=== PATIENT | male | born 1940 | race Caucasian/White ===

== ENCOUNTER 2016-12-05 10:16 | Day surgery (SDC) | payer MEDICARE, OTHER ==
[~2016-12-05] VITALS: Ht 182.9 cm; Wt 88.0 kg
--- NOTE | 2016-12-05 07:04 | PCM.HPANE ---
Patient Data Surgeon Admitting Provider: Attending Provider:Francis Blackwood MD Primary Care Physician:Rossi Other Provider:Macy Pham Anesthesia Reason for Visit Colon Cancer Screening, Gerd Ht/WT & BMI Body Mass Index Allergies Coded Allergies: No Known Allergies (Verified , 12/01/16) Past Anesthesia History Anesthesia History: Denies:: Abnormal Airway, Anesthesia Reactions, Difficult Intubation, Fam Anesthesia Reaction, Fam Malignant Hypertherm, Malignant Hyperthermia Diabetes History Hx Diabetes?: No MRSA MRSA: No Medications Reported Medications Ipratropium/Albuterol Sulfate (Iprat-Albut 0.5-3(2.5) mg/3 mL Inhalant Soln)3 Ml Ampul.neb3 Ml IH TID Ref 0 12/01/16 Terazosin 10 Mg Qctjuke96 Mg PO HS Ref 0 09/23/15 Omeprazole 20 Mg Tablet.dr20 Mg PO DAILY PRN For Indigestion 09/23/15 Clopidogrel 75 Mg Vvikjj84 Mg PO DAILY Ref 0 09/23/15 Bisoprolol Fumarate 5 Mg Tablet5 Mg PO DAILY 09/23/15 Atorvastatin (Lipitor)40 Mg Xgmird79 Mg PO DAILY Ref 0 09/23/15 Discontinued Reported Medications Albuterol Sulfate (Ventolin HFA Inhaler)200 Puff/18 Gm Inhaler1 Puff INH Q4 PRN For Wheezing #1 INHALER Ref 0 12/01/16 Montelukast 10 Mg Nguibp49 Mg PO HS Ref 0 12/01/16 Albuterol HFA (Proair HFA)8.5 Gm Hfa.aer.ad2 Puffs INHALATION Q4H PRN For Shortness of Breath #1 INHALER 09/23/15 Fluticasone/Salmeterol (Advair 250-50 Diskus)60 Puff/Inh Disk1 Puff IH BID #1 DISK Ref 0 09/23/15 Loratadine (Claritin)10 Mg Novneud39 Mg PO DAILY Ref 0 09/24/15 History History of ENT Problems?: Yes HEENT History: Positive for:: Sinus Problem Denies:: Abnormal Airway Cataracts Difficult Intubation Dysphagia Hearing Problem Denture Type: None Teeth Condition: Within Normal Limits Hx of Heart Problems?: Yes Cardiovascular History: Positive for:: Cardiac Surgery Chest Pain Edema (left calf foot) Hypertension Irregular Heartbeat (Not afib) Denies:: Atrial Fibrillation Congestive Heart Failure Heart Murmur Pacemaker Thrombophlebitis Valvular Heart Disease Hx of Respiratory Problem?: Yes Respiratory History: Positive for:: Dyspnea Denies:: Asthma COPD Chest Surgery Cough Hemoptysis Pneumonia Tuberculosis Hx Neurologic Problems?: No Neurological History: Denies:: CVA Dementia Dizziness Headaches Parkinson's Disease Seizures Hx of GI Problems?: No Hx of Problems?: No Genitourinary History: Denies:: Kidney Stones Urinary Tract Infection Male Hx: Denies:: Scrotal Mass Testicular Surgery Hx Musculoskeletal Problems?: Yes Musculoskeletal History: Positive for:: Back Injury Denies:: Joint Replacement Musculoskeletal Trauma Hx of Psycho/Social Problems?: No Psycho Social History: Denies:: Anxiety Hx Depression Suicide Attempt Hx Surgeries?: Yes (2 stents, ) Hx Any Other Health Problems?: Yes Other History: Positive for:: Cancer (Skin cancers) Hospitalization Denies:: Endocrine Disease Thyroid Disease History Blood Transfusions: Denies:: Blood Transfuse Reaction Blood Transfusions Hx Diabetes: No Hx Alcohol Use: NoHx Substance Use: No Smoking Status: Former Smoker Have You Smoked inLast 12 mo: Yes (1/2 ppd x 40 years) Stop/Bang Risk Assessment Category Category 1A: Patient has history of documented sleep apnea, and HAS NOT received any narcotic, sedative or anesthesia administration during this stay. Category 1B: Patient has history of documented sleep apnea, and HAS received any narcotic , sedative or anesthesia administration during this stay Category 2: Patient has SUSPECTED Obstructive Sleep Apnea, and HAS received any narcotic , sedative or anesthesia administration during this stay. Category 3: Patient has SUSPECTED Obstructive Sleep Apnea and HAS NOT received narcotic, sedative or anesthesia administration during this stay. Category 4: Outpatient in Procedural Areas with known sleep apnea or who screen positive for High Risk via the STOP/BANG questionnaire. Exam Exam General Appearance: Alert, Oriented X3, Cooperative, No Acute Distress HEENT/AIRWAY: MP 2, Neck Movement (from), Mouth Opening (wnl) Lungs: Clear to Auscultation Heart: Exam Unremarkable Plan Impression Patient chart reviewed, patient interviewed and anesthestic plan with risks, benefits, and alternatives discussed, and informed consent obtained. ASA Physical Status: ASA2 Mod Systemic Disease Anesthetic Plan: GA Bene/Risks/Altern/Consents: Yes HP Complete Prior to Induction: Yes Dixon Kolb MD December 05, 2016 07:04
[~2016-12-05 10:16] MED LIST: ADV250INH IH; ALBU18HF INH; ALBU8.5H2 INHALATION; BISO5TAB2 PO; CLOP75TA28 PO; IPRA3AMP IH; LIP40 PO; Lactated Ringer's 1,000 ML IV ONE; MONT10TA23 PO; OMEP20TA86 PO; TERA10CA5 PO
[2016-12-05] MEDS ORDERED: Propofol 10,000 mCg/mL 20 mL Inj ONE (10:17)
[2016-12-05] MEDS ORDERED: fentaNYL-PF 50 mCg/mL 2 mL Inj ONE (10:17)
[2016-12-05 10:40] VITALS: BP 152/83; PULSE 69; RESP 16; O2SAT 98
[2016-12-05] MEDS ORDERED: Lactated Ringer's 1,000 ML IV SCH (11:18)
[2016-12-05] MEDS ORDERED: Ondansetron 2 mg/mL 2 mL Inj IVPUSH PRN (11:20)
[2016-12-05] MEDS ORDERED: MetoCLOpramide 5 mg/mL 2 mL Inj IVPUSH PRN (11:20)
[2016-12-05 12:05] VITALS: BP 120/64; PULSE 64; RESP 14; O2SAT 96
[2016-12-05 12:25] VITALS: BP 120/64; PULSE 68; RESP 14; O2SAT 94
[2016-12-05 12:29] VITALS: BP 142/74; PULSE 64; RESP 14; O2SAT 95
--- NOTE | 2016-12-05 13:23 | PCM.ANEP1 ---
Post Anesthesia PACU Phase 1 Assessment Vital Signs Vital Signs Date Time Temp Pulse Resp B/P Pulse Ox O2 Delivery O2 Flow Rate FiO2 12/05/16 12:29 64 14 142/74 95 Room Air 12/05/16 12:25 68 14 120/64 94 Room Air 12/05/16 12:05 64 14 120/64 96 Room Air 12/05/16 10:40 36.6 69 16 152/83 98 Room Air Anesthetic Administered: GA Level of Alertness: Awake, talking BLEVINS's with Equal Strength: Yes Pain: No Nausea or Vomiting: No CV Function & Hydration Stable: Yes Airway Device: Lungs: Clear to Auscultation PACU Phase 2 Assessment Complications: No Follow up Care: No Patient Instructions Provided: N/A Dixon Kolb MD December 05, 2016 13:23
--- NOTE | 2016-12-05 13:36 | ENDO ---
[address] [address] ENDOSCOPY PROCEDURE PATIENT: CORAL FISHMAN : 1940 MR#: [id number] ADMIT: 12/05/2016 JOB ID: [id number] DATE OF SERVICE: 12/05/2016 PROCEDURE: Esophagogastroduodenoscopy and a colonoscopy. INDICATIONS: A 76-year-old male with symptoms of reflux and hoarseness. Partially responsive to a single daily dose of omeprazole. He also reports for colon cancer screening with a remote history of tubulovillous adenoma. EQUIPMENT: GIF-H180J and a PCF-H180AL. SEDATION: Monitored anesthesia as provided by Dr. Armando Kolb. COMPLICATIONS: None identified. BOWEL PREPARATION: Fair, adequate exam. PROCEDURE INFORMATION: After the risks and benefits were explained, written and verbal informed consent was obtained, the patient was brought into the endoscopy suite and placed into the left lateral decubitus position. Sedation was achieved using the above-stated medications with the addition of oxygen via nasal cannula. The scope was introduced into the mouth through the bite block, and advanced to the second portion of the duodenum. The scope was slowly withdrawn to carefully examine the mucosa for any defects or lesions. Retroflexed views were accomplished in the stomach. The stomach was decompressed. The scope removed from the patient who tolerated the procedure well. The patient was then turned around. A digital rectal examination accomplished. No significant pathology appreciated apart from some moderate internal hemorrhoids. The scope was introduced into the rectum and advanced to the cecum as identified by the appendiceal orifice and ileocecal valve. The scope was slowly withdrawn to carefully examine the mucosa for any defects or lesions. Multiple direct views were made through the dentate line for exclusion of pathology. The colon was decompressed. The scope removed from the patient who tolerated the procedure well. FINDINGS: 1. Duodenum: This appeared unremarkable from the bulb through to the second portion. 2. Stomach: No significant pathology throughout the stomach. No ulcers. No mass lesions. No outlet obstruction. Retroflexed views did reveal the presence of a sliding hiatal hernia. 3. Esophagus: The squamocolumnar junction seemed to correlate with the top of the gastric folds at around 38 cm from the incisors (GE junction.) The diaphragmatic pinchcock was at about 44 cm from the incisors. No other pathology in the esophagus apart from some subtle low-grade esophagitis just proximal to the GE junction. 4. Colon: No significant polyps, mass lesions, or inflammatory features identified throughout. There was some diverticulosis in the left colon. Moderate internal hemorrhoids noted on direct views. ENDOSCOPIC DIAGNOSES: 1. Sliding hiatal hernia. 2. Clayton grade A erosive esophagitis. 3. Diverticulosis. 4. Hemorrhoids. RECOMMENDATIONS: 1. Patient can resume Plavix today. 2. He is encouraged to increase his PPI up to b.i.d. 3. Follow up in GI clinic in the next 6-8 weeks to review response. 4. Repeat colonoscopy in five years' time considering personal history of tubulovillous adenoma.
== END 2016-12-05 23:59 | disposition home or self-care (01) ==
LOC: END 10:16
PROVIDERS: ATTEND Internal Medicine Gastroenterology
DX: Z12.11 Encounter for screening for malignant neoplasm of colon (principal); Z86.010 Personal history of colon polyps; K57.30 Diverticulosis of large intestine without perforation or abscess without bleeding; K64.8 Other hemorrhoids; K44.9 Diaphragmatic hernia without obstruction or gangrene; K20.8 Other esophagitis; K21.9 Gastro-esophageal reflux disease without esophagitis; I10 Essential (primary) hypertension; I25.10 Atherosclerotic heart disease of native coronary artery without angina pectoris; E78.5 Hyperlipidemia, unspecified; J44.9 Chronic obstructive pulmonary disease, unspecified; N40.0 Benign prostatic hyperplasia without lower urinary tract symptoms; R06.00 Dyspnea, unspecified; Z87.891 Personal history of nicotine dependence; Z85.828 Personal history of other malignant neoplasm of skin
CPT/HCPCS: 43235; 99153; G0105; G0500; J2250; J3010; J7120